=== PATIENT | female | born 1960 | race Caucasian/White ===

== ENCOUNTER → 2020-06-06 | Outpatient (CLI) | payer BC ==
[~2020-06-06] MED LIST: CENTRUM SILVER1 EAC4 PO; CIPRO500 MG PO; CLARITIN10 M2 PO; FLAGYL500 MG PO; MEGA BIOTIN10000 MCG PO
== END ==
LOC: RAD 16:08
DX: M70.22 Olecranon bursitis, left elbow (principal); M79.89 Other specified soft tissue disorders
CPT/HCPCS: 73070

== ENCOUNTER → 2020-07-02 | Outpatient (CLI) | payer BC | LOC: KOH-I 08:46 | DX: G44.89 Other headache syndrome (principal) | CPT/HCPCS: 70450 ==

== ENCOUNTER → 2020-12-24 | Outpatient (CLI) | payer BC ==
[2020-12-24 09:17] LABS: HEMOGLOBIN 14.5 gm/dl (12.3-15.3); RED BLOOD COUNT 4.33 M/UL (4.00-5.10); WHITE BLOOD COUNT 4.8 K/UL (4.5-11.0)
[2020-12-24 09:45] LABS: BUN/CREATININE RATIO 20 (0-10)
== END ==
LOC: LAB 08:56
PROVIDERS: Internal Medicine
DX: Z00.00 Encounter for general adult medical examination without abnormal findings (principal); Z13.1 Encounter for screening for diabetes mellitus; Z13.220 Encounter for screening for lipoid disorders
CPT/HCPCS: 36415; 80053; 80061; 84439; 84443; 85025

== ENCOUNTER → 2021-09-17 | Outpatient (CLI) | payer BC | LOC: RAD 12:37 | DX: R10.9 Unspecified abdominal pain (principal) | CPT/HCPCS: 74018 ==